=== PATIENT | female | born 1960 | race Caucasian/White ===

== ENCOUNTER 2017-02-11 07:30 | Emergency (ER) | payer OTHER ==
[2017-02-11 07:47] VITALS: BP 142/77
--- NOTE | 2017-02-11 08:14 | ED Physician Documentation ---
Upper Respiratory Symptoms - HISTORIAN Historian: patient - HPI Stated Complaint: cough Chief Complaint: Cough/ Upper Respiratory Onset: days ago (3 weeks) Duration: intermittent episodes Context: denies: recent foreign travel Severity: moderate Associated Symptoms: sinus drainage, sore throat (from coughing), productive cough (green), shortness of breath (with cough). denies: fever, chills, sweating, earache, runny nose, hoarseness, chest pain, bloody cough, hurts to breathe, headache Worsened by Deep Breath: No - ROS CONST/EYES: denies: weakness - PAST HX Lung Disease: none. denies: asthma, COPD PE Risk Factors: none Surgeries/Procedures: none Immunizations: denies: influenza, pneumovax Allergies/Adverse Reactions: Allergies Allergy/AdvReac Type Severity Reaction Status Date / Time No Known Drug Allergies Allergy Verified 02/11/17 07:40 Home Medications: Ambulatory Orders Medication Instructions Recorded Azithromycin [Zithromax] 250 mg PO QD #6 tablet 02/11/17 Guaifenesin/Codeine Phosphate 10 ml PO Q6 PRN #240 liquid 02/11/17 [Codeine-Guaifen 10-100 mg/5 ml] - SOCIAL HX Smoking History: less than 1 pack/day (1/2 ppd) Alcohol Use: none Drug Use: none - FAMILY HX Family History: no significant history - VITAL SIGNS Vital Signs: Vital Signs Temp Pulse Resp BP Pulse Ox 97.2 F L 85 19 142/77 94 02/11/17 07:37 02/11/17 07:37 02/11/17 07:37 02/11/17 07:37 02/11/17 07:37 - REVIEWED ASSESSMENTS Nursing Assessment Reviewed: Yes Vitals Reviewed: Yes Upper Respiratory Symptoms - EXAM General Appearance: alert, mild distress EENT: eyes nml inspection, nml ENT inspection, ear nml Neck: normal inspection, thyroid normal, supple. No: stiff neck, meningismus Respiratory: no resp. distress, no pain on inspiration, speaks full sentences, rhonchi (few scattered bialaterally). No: respiratory distress, wheezes, rales Abdomen: non-tender, no organomegaly, nml bowel sounds, no distention CVS: reg rate & rhythm, heart sounds normal, equal pulses, no murmur Skin: color nml, no rash, warm,dry Neuro/Psych: mood/affect nml Discharge Clincal Impression: Acute bacterial bronchitis Prescriptions: Azithromycin [Zithromax] 250 mg PO QD #6 tablet Guaifenesin/Codeine Phosphate [Codeine-Guaifen 10-100 mg/5 ml] 10 ml PO Q6 PRN # 240 liquid PRN Reason: Cough Referrals: Bella Wilde MD [Primary Care Provider] - 2 Days Additional Instructions: Drink a lot of fluids. Take medication of Azithromycin and Cheratussin as prescribed. Rest and get plenty of sleep. Eat a well balanced diet. Try to stop smoking. If not better in 5-6 days to follow-up with your primary care provider or return to the ED. Condition: Stable Disposition: 01 HOME, SELF-CARE Decision to Admit: NO Date of Decison to Admit: 02/11/17 Decision Time: 08:14
== END 2017-02-11 08:15 | disposition home or self-care (01) ==
LOC: ED 07:30
DX: J20.9 Acute bronchitis, unspecified (principal)
CPT/HCPCS: 99282; 99283